=== PATIENT | female | born 1940 | race Caucasian/White ===

== ENCOUNTER 2019-04-09 11:08 | Emergency (ER) | payer OTHER ==
[2019-04-09 12:48] LABS: ADD MAN DIFF? NO
[2019-04-09 12:52] LABS: WHITE BLOOD COUNT 7.6 10^3/ul (4.8-10.8)
[2019-04-09 12:52] LABS: BASOPHIL # 0.1 10^3/ul (0.0-0.1); BASOPHILS % 0.8 % (0.0-2.0); EOSINOPHILS # 0.2 10^3/ul (0.0-0.5); HEMATOCRIT 43.1 % (37.0-47.0); HEMOGLOBIN 13.7 g/dl (12.0-16.0); LYMPHOCYTES # 1.8 10^3/ul (0.8-2.9); MEAN CORPUSCULAR HGB CONC 31.8 g/dl (32.0-37.0); MEAN PLATELET VOLUME 11.1 fl (7.4-10.4); MONOCYTE # 0.6 10^3/ul (0.3-0.9); MONOCYTES % 7.7 % (0.0-11.0); NEUTROPHIL # 5.1 10^3/ul (1.6-7.5); NEUTROPHILS % 66.2 % (39.0-77.0); PLATELET COUNT 224 10^3/UL (140-415); RED CELL DISTRIBUTION WIDTH 11.9 % (11.5-14.5)
[2019-04-09] MEDS: ACETAZOLAMIDE 500 MG INJ IV (13:22)
[2019-04-09 13:25] LABS: ANION GAP 8 (5-13); BLOOD UREA NITROGEN 19 mg/dl (7-20); CALCIUM 9.8 mg/dl (8.4-10.2); CARBON DIOXIDE 29 mmol/L (21-31); CHLORIDE 108 mmol/L (97-110); CREATININE 0.84 mg/dl (0.44-1.00); GLUCOSE 107 mg/dl (70-220); POTASSIUM 3.7 mmol/L (3.5-5.1); SODIUM 145 mmol/L (135-144)
[2019-04-09] MEDS: PILOCARPINE 2% 15ML OPH RIGHT EYE ×2 (13:48→15:34)
[2019-04-09] MEDS: TIMOLOL 0.5% 5 ML OPH RIGHT EYE ×2 (13:48→15:34)
[2019-04-09 13:49] LABS: PROTIME 13.3 Sec (11.9-14.9)
[2019-04-09] MEDS: APRACLONIDINE 1% 0.1 ML OPH RIGHT EYE ×2 (13:49→15:36)
[2019-04-09 13:50] LABS: PARTIAL THROMBOPLASTIN TIME 31.1 Sec (23.0-35.0)
[2019-04-09] MEDS: TETRACAINE 0.5% 4 ML OPH RIGHT EYE (15:32)
== END 2019-04-09 17:20 | disposition short-term general hospital (02) ==
LOC: FTE 11:08 → E/R 17:20
DX: H40.41 Glaucoma secondary to eye inflammation, right eye (principal); I10 Essential (primary) hypertension
CPT/HCPCS: 80048; 85025; 85610; 85730; 96374; 99285-25